=== PATIENT | male | born 1975 | race Caucasian/White ===

== ENCOUNTER → 2023-06-17 10:46 | Outpatient (REF) | payer OTHER, SELFPAY | LOC: RAD 10:46 | PROVIDERS: ATTENDING PHYSICIAN Nurse Practitioner | DX: R05.1 Acute cough (principal) | CPT/HCPCS: 71046 ==

== ENCOUNTER → 2023-06-27 12:09 | Outpatient (REF) | payer OTHER, SELFPAY | LOC: RAD 12:09 | PROVIDERS: ATTENDING PHYSICIAN Physician Assistant | DX: R07.81 Pleurodynia (principal) | CPT/HCPCS: 71101 ==

== ENCOUNTER 2023-08-05 13:49 | Inpatient (IN) | payer OTHER, SELFPAY ==
[2023-08-05 10:26] VITALS: BP 114/80
--- NOTE | 2023-08-05 10:48 | ED.GENMED ---
History of Present Illness
General
Chief Complaint: Abdominal Symptoms
Source: patient
Time Seen by Provider: 08/05/23 10:40
Travel History
Have you had any contact with someone who has COVID-19?: No
Do you have any symptoms of coronavirus? Fever > 100 degrees, chills, cough, shortness of breath, sore throat, loss of taste or smell, muscle aches, or headache?: No
History of Present Illness
History of Present Illness:
47-year-old male with past medical history of Crohn's disease, hypertension, hyperlipidemia presenting the emergency department for 3 days of of watery diarrhea going multiple times per day, when symptoms started he also had 3 episodes of nonbloody
nonbilious emesis but has not had any vomiting since Tuesday, subjective fever but has not taken his temperature, abdominal cramping, decreased p.o. intake to both solids and liquids. Patient notes that his ewhkwx-lf-emh also has similar symptoms
and they were around each other this past Tuesday. No recent travel, no recent antibiotics, states this feels different than a typical Crohn's flare. He notes that he gets Remicade infusions every 8 weeks for which she is compliant with. States
last colonoscopy was around 2 years ago. No other concerns at this time
Past History
Past History
ED Past Medical History: HTN, Hypercholesterolemia and Other (Crohn's disease, Sleep apnea); Negative Asthma or NIDDM
ED Past Surgical History: Urological (vasectomy) and Other (Liver biopsy)
Social History
Tobacco: Non-smoker
Alcohol: Occasional
Drug: None
Personal:
Living: with family
Employment: Employed
Review of Systems
Review of Systems
All Other Systems: ROS reviewed and negative except as documented in HPI and ROS
Phy Exam
Physical Exam
Physical Exam:
GENERAL: Alert , appears uncomfortable
EYE: clear conjunctiva b/l
HEAD: NCAT
ENT: o/p clr, mildly dry mucous membranes
CARDIAC: Tachycardic rate and rhythm, no murmur
LUNGS: Clear breath sounds bilaterally, no acute respiratory distress, no wheezes/rales/rhonchi
ABDOMEN: Soft, diffusely tender, no r/g, no cvat
NEUROLOGICAL: Alert and oriented
SKIN: Warm and dry, skin intact.
MUSCULOSKELETAL: No edema, well perfused.
PSYCH: Normal and appropriate interaction.
Scores
Heart Failure Risk
Heart Failure Risk Score: Not Applicable
Heart Score for Chest Pain Patients
STEMI patient?: Not applicable
Withdrawal Assessment of Alcohol
Withdrawal Assessment Completed?: Not applicable
Course
Orders/Labs/Results
Orders:
Orders
08/05/23 10:30
Electrocardiogram (*1) Urgent
Reason for Study: Tachycardia
EKG- Treatment ONCE
08/05/23 10:47
Norovirus by PCR Urgent
ANGEL LUIS Source: Feces/Stool
Specimen Description:
STOOL [C difficile Antigen & Toxins] Urgent
ANGEL LUIS Source: Feces/Stool
Specimen Description:
Stool Culture Urgent
ANGEL LUIS Source: Feces/Stool
Specimen Description:
0.9% Sodium Chloride 1000 ml [Nss] 1,000 ml IV BOLUS
Ketorolac [Toradol] 30 mg IV NOW STA
Ondansetron Injectable [Zofran] 4 mg IV NOW STA
08/05/23 11:13
Complete Blood Count/With Diff Urgent
Comprehensive Metabolic Panel Urgent
Lipase Urgent
08/05/23 11:47
Urinalysis Reflex To Culture Urgent
Date Specimen was Collected: 08/05/23
Time Specimen was Collected: 11:46
Urine Microscopic Reflex Cult Urgent
Abnormal Lab Results
08/05/23 08/05/23
11:13 11:47
WBC 13.6 H 10^3/uL
(4.8-10.8)
MCH 32.2 H pg
(27.0-31.0)
Abs Immat Gran (auto) 0.1 H 10^3/uL
(0-0.05)
Absolute Neuts (auto) 9.8 H 10^3/uL
(1.4-6.5)
Absolute Monos (auto) 2.4 H 10^3/uL
(0.1-0.6)
Immature Gran % 0.6 H %
(0-0.5)
Lymphocytes % 9.6 L %
(20.5-51.1)
Monocytes % 17.4 H %
(1.7-9.3)
Sodium 128 L mmol/L
(135-145)
Chloride 96 L mmol/L
(98-107)
Carbon Dioxide 18 L mmol/L
(22-30)
BUN 53 H mg/dl
(9-20)
Creatinine 2.3 H mg/dL
(0.7-1.3)
Glucose 118 H mg/dl
(70-99)
Urine Ketones 1+ A
(Negative)
Ur Occult Blood Reflex 3+ A
(Negative)
Urine Bilirubin 1+ A
(Negative)
Urine RBC 7-10 A /HPF
(0-2)
Urine Bacteria (Reflex) Few A
(Negative)
Urine Albumin (Reflex) 1+ A
(Neg - Trace)
08/05/23 11:13
08/05/23 11:13
Vital Signs
Initial and Last Documented VS:
Initial Vital Signs
Temp Pulse Resp BP Pulse Ox
99.1 F 124 22 114/80 98
08/05/23 10:26 08/05/23 10:26 08/05/23 10:26 08/05/23 10:26 08/05/23 10:26
Last Documented Vital Signs
Temp Pulse Resp BP Pulse Ox
99.1 F 108 19 114/80 97
08/05/23 10:26 08/05/23 11:19 08/05/23 11:19 08/05/23 10:26 08/05/23 11:19
MDM/Problems Addressed
Differential Diagnosis Includes:
Crohn's flare, infectious diarrhea, C. difficile colitis, norovirus, less concern for an acute surgical abdomen
MDM/Problems Addressed:
47-year-old male presented emergency department for evaluation of 3 days of watery diarrhea, initially had some vomiting but this seems to be mostly improved. I do expect some degree of dehydration given patient's tachycardia and lack of p.o.
intake. Will treat with Zofran, fluids and Toradol. Lab work ordered. Will attempt to obtain stool studies. Reassessment following.
*Pulse Oximetry
Patient hypoxic: no
*Critical Care Note
Total Time (30-74mins, 75-104mins- exclusive of procedures): Not Applicable
Data Reviewed
Review of Other/Old Records Reveals: Labs and Records
Patient Management
Discussion with other providers: Hospitalist
Escalation/DeEscalation of care consider admission/obs:
Patient's labs reveal uremia with a creatinine of 2.3, BUN of 53 and bicarb of 18. Patient is also mildly hyponatremic. I suspect this is all dehydration from persistent volume loss from diarrhea. Stool studies remain pending. Will admit to
hospitalist service for continued monitoring of patient's renal function. Continue IV hydration. Hospitalist accepts for continued evaluation and treat
ED Attending Note
-
Portions of this chart may have been created with voice recognition software.� Occasional wrong word or��sound alike� substitutions may have occurred due to the inherent limitations of voice recognition software.
Discharge Plan
Departure
Patient Disposition: Admit
Date of Disposition: 08/05/23
Time of Disposition: 12:07
Presentation/result/management discussed w/ accepting MD/DO: Hospitalist
Discharge Problem:
STACI (acute kidney injury), Acute dehydration, Diarrhea
Prescriptions:
No Action
atorvastatin 20 mg Tablet
20 mg PO DAILY
lisinopril 10 mg Tablet
10 mg PO DAILY
loratadine [Claritin] 10 mg Tablet
10 mg PO DAILY
infliximab [Remicade] 100 mg Recon Soln
0 mg IV Q8W
ibuprofen 200 mg Tablet
400 mg PO DAILYPRN PRN (Reason: mild pain)
acetaminophen 325 mg tablet
650 mg PO DAILYPRN PRN (Reason: mild pain)
Referrals:
Rabia Tapia CRNP [Family Provider] -
Interventions
Interventions:
*Risk Screen - Suicide Last Done: 08/05/23 11:21
*General Assessment Last Done: 08/05/23 11:20
*Neglect/Abuse Screening Last Done: 08/05/23 11:21
ED- Fall Risk Assessment Last Done: 08/05/23 11:22
*ED COVID-19 Vaccine History Last Done: 08/05/23 11:20
CP-[id number]-Wfubsbhfff Assessment Last Done: 08/05/23 11:23
Discharge Date and Time
Print Language: MALAYSIAN
[2023-08-05] MEDS: NSS 1000 IV (11:15)
[2023-08-05] MEDS: ZOFRAN 4 MG IV (11:15)
[2023-08-05] MEDS: TORADOL 30 MG IV (11:15)
[2023-08-05 11:19] VITALS: BMI 35.7
[2023-08-05 11:25] LABS: % Basophils 0.1 % (0-2); % Immature Granulocytes 0.6 % (0-0.5); % Lymphocytes 9.6 % (20.5-51.1); % Monocytes 17.4 % (1.7-9.3); % Neutrophils 72.3 % (42.2-75.2); Absolute Immature Granulocytes 0.1 10^3/uL (0-0.05); Absolute Lymphocytes 1.3 10^3/uL (1.2-3.4); Absolute Monocytes 2.4 10^3/uL (0.1-0.6); Absolute Neutrophils 9.8 10^3/uL (1.4-6.5); Hematocrit 46.4 % (39.0-52.0); Hemoglobin 16.7 g/dL (13.0-18.0); Mean Corpuscular Hgb 32.2 pg (27.0-31.0); Mean Corpuscular Volume 89.4 fL (80.0-94.0); Mean Platelet Volume 9.3 fL (7.4-10.4); Nucleated Red Blood Cells % 0 % (-); Platelet Count 198 10^3/uL (130-400); Red Blood Cell Count 5.19 10^6/uL (4.70-6.10); Red Cell Dist. Width 12.1 % (11.5-14.5); White Blood Cell Count 13.6 10^3/uL (4.8-10.8)
[2023-08-05 11:42] LABS: ALT (SGPT) 46 U/L (0-50); AST (SGOT) 47 U/L (17-59); Albumin 4.5 g/dl (3.5-5.0); Alkaline Phosphatase 104 U/L (38-126); Blood Urea Nitrogen 53 mg/dl (9-20); Calcium 9.1 mg/dl (8.4-10.2); Carbon Dioxide 18 mmol/L (22-30); Chloride 96 mmol/L (98-107); Estimated Creatinine Clearance 51 ml/min; Glucose 118 mg/dl (70-99); Lipase 154 U/L (23-300); Potassium 3.8 mmol/L (3.5-5.1); Sodium 128 mmol/L (135-145); Total Bilirubin 0.8 mg/dl (0.2-1.3); Total Protein 8.1 g/dl (6.3-8.2); eGFR 34.81
[2023-08-05 11:57] LABS: Urine Albumin 1+ (Neg - Trace); Urine Bilirubin 1+ (Negative); Urine Character Clear (Clear); Urine Color Yellow; Urine Glucose Negative (Negative); Urine Ketone 1+ (Negative); Urine Leukocyte Negative (Negative); Urine Nitrite Negative (Negative); Urine Occult Blood 3+ (Negative); Urine Specific Gravity 1.025 (<1.030); Urine Urobilinogen Negative (Neg - 1+)
[2023-08-05 12:07] LABS: Urine Mucus Few
[2023-08-05 12:10] LABS: Urine Granular Cast >15 /LPF (0)
[2023-08-05 12:12] LABS: Urine Amorphous Seen
[2023-08-05 12:15] LABS: Urine Bacteria Few (Negative)
--- NOTE | 2023-08-05 13:37 | HPS.HSE ---
Family Physician
-
Family Physician: TYE Payne
Chief Complaint
-
Diarrhea nausea and vomiting
History of Present Illness
Patient is a 47-year-old male with past medical history of essential hypertension, hyperlipidemia, Crohn's disease on Remicade every 2 months, obesity came to ER for having new onset of diarrhea nausea and vomiting in 3 days. Patient getting
Remicade therapy with primary GI at [facility] and at baseline have 1-2 soft bowel movements. Denies of having any history of complicating Crohn's disease symptoms. 3 days patient started with acute onset of nausea and vomiting followed by
significant diarrhea. Patient had 6 bowel movement last night and having 1 bowel movement roughly every hour according to patient today. Having diffuse abdominal discomfort with mainly located in right lower quadrant. Subjective fever and chills
as well. Denies of having any blood in stool/melena. Patient sister in law had similar symptoms on Tuesday and potential exposure point.
Denies of having any planes of chest pain/shortness of breath/cough/palpitation/dysuria.
Medical History
Past Medical History
Past Medical History: Reports Other
Additional Past Medical History:
essential hypertension, hyperlipidemia, Crohn's disease on Remicade every 2 months, obesity
Past Surgical History: Reports Other
Social History
Tobacco: Non-smoker
Alcohol: Occasional
Drug: None
Living: With Family
Family History
Family History: Not pertinent
Allergies / Home Medications
Allergies reflects when Allergies were last updated in fruux.
Home Medications with original date entered in fruux
Allergy/Medication List:
Allergies
Allergy/AdvReac Type Severity Reaction Status Date / Time
No Known Allergies Allergy Verified 08/05/23 10:26
Home Medications
atorvastatin 20 mg tablet 20 mg PO DAILY High cholesterol 11/19/21
lisinopril 10 mg tablet 10 mg PO DAILY Blood pressure 11/19/21
loratadine 10 mg tablet (Claritin) 10 mg PO DAILY Allergies 11/20/21
acetaminophen 325 mg tablet 650 mg PO DAILYPRN PRN mild pain 08/05/23
ibuprofen 200 mg tablet 400 mg PO DAILYPRN PRN mild pain 08/05/23
infliximab 100 mg intravenous solution (Remicade) 0 mg IV Q8W 08/05/23
Review of Systems
-
A 12 point ROS was completed and negative except as noted: Yes
Physical Exam
Vital Signs
Vital Signs
Temp Pulse Resp BP Pulse Ox
99.1 F 108 19 114/80 97
08/05/23 10:26 08/05/23 11:19 08/05/23 11:19 08/05/23 10:26 08/05/23 11:19
Physical Exam
General: Comfortable, Conversant and Obese
HEENT: No Moist mucous membranes or Oxygen
Respiratory: Clear
Cardiac: S1/S2 and Regular Rhythm; No Murmur
GI: Soft, Normal Bowel Sounds and Tender (maximal at RLQ)
Musculoskeletal: No Clubbing, No Cyanosis and No Edema
Skin: Warm and Dry
Neuro: Awake, Alert, Oriented and Nonfocal/grossly intact
Psych: Calm
Laboratory Results
-
08/05/23 11:13
08/05/23 11:13
Laboratory Results
Total Bilirubin 0.8 mg/dl (0.2-1.3) 08/05/23 11:13
AST 47 U/L (17-59) 08/05/23 11:13
ALT 46 U/L (0-50) 08/05/23 11:13
Alkaline Phosphatase 104 U/L (38-126) 08/05/23 11:13
Lipase 154 U/L (23-300) 08/05/23 11:13
Data Reviewed
-
Lab Data: Labs Reviewed by me
Impression/Plan
-
1. Acute diarrhea
Sepsis -tachycardia/leukocytosis
Rule out infectious etiology
-Patient have history of Crohn's disease although at baseline patient does not have any diarrhea
-Symptoms acute onset with nausea and vomiting preceding diarrhea onset
-No recent antibiotic exposure, patient whllxj-nt-ghv had similar symptoms on Tuesday
-Check stool for C. difficile/stool culture norovirus
-Maintain on empiric ciprofloxacin and Flagyl
-GI evaluation requested as well.
2. Acute kidney injury
-No history of chronic kidney disease
-Creatinine 2.3 unlikely due to volume depletion
-Maintain on D5 LR, follow renal function
3. Acute hyponatremia
-Suspecting hypovolemic hyponatremia from diarrhea loss
-Will do further testing if not improved with IV fluid
4. Anion gap metabolic acidosis
-Check lactic acid level
-Suspecting some of acidosis being non-anion gap due to diarrhea loss
-oral bicrab ordered
5. Essential HTN
-Hold lisinopril due to STACI
-As needed hydralazine for SBP greater than 160
6. Hyperlipidemia
-Maintained on atorvastatin
DVT PPX - heparin subq- high risk with CD
Full code
Total time spent : 78 mins
I personally saw and examined the patient.
I have reviewed all diagnostic interpretations and treatment plans as written.
Time includes patient management by me, time spent at the patients bedside, time to review lab and imaging results, discussing patient care, documentation in the medical record, and time spent with the family or caregiver and discussing care plan
with RN/Consultants.
[2023-08-05] MEDS: CIPRO 400 MG 200 IV (14:14)
--- NOTE | 2023-08-05 14:25 | CON.GI ---
Addendum entered and electronically signed by Rafael Horn MD 08/05/23 16:02:
Patient seen and examined, agree with nurse practitioner note. Patient with history of Crohn's disease for many years status post multiple Biologics, though has been doing very well on Remicade every 8 weeks, seeing gastroenterology at [facility]. Acutely he had onset of nausea, vomiting and nonbloody diarrhea with crampy abdominal pain. He feels very dehydrated and weak. He is never had symptoms like this before. He does state that his cicrki-lu-pkg also had recent
symptoms. He denies any other travel or antibiotics. He has not had any issues on Remicade at the end of his infusion cycle and is overall been doing well, and he feels that this is different. On exam his mucous membranes are dry, though
abdominal exam is benign. Most likely etiology is acute infectious gastroenteritis, possible norovirus given his symptoms, along with significant dehydration and electrolyte abnormality. At this point would continue aggressive IV fluids and
correction of his dehydration and electrolyte abnormality. Will await stool studies, though can continue antibiotics for now and supportive care. This is less likely to be related to his Crohn's disease, though if not improving with hydration and
all the above is negative may need to investigate further.
Addendum entered and electronically signed by TYE Schaefer 08/05/23 15:54:
If not improving consider CT not completed in ER
Original Note:
Consultation
-
Date/Time Consultation Requested: 08/05/23 1345
Date/Time Consultation Performed: 08/05/23 1425
Requesting Provider: Gil Daugherty MD
Performing Provider: TYE Dwyer, Mehdi Horn MD
Reason for Consultation: diarrhea hx crohns
Medical History
Chief Complaint / HPI
Chief Complaint: diarrhea
History of Present Illness:
Pt is a 47yo presents with hx HTN, hypercholesterolemia obesity, melanoma leg 2022 with surgical resection with Dr. Doyle and crohn's disease. He presents to ER today with sudden onset since 4/3 of nausea and vomiting(large volume), abdominal pain
and diarrhea. Abdominal pain diffuse lower abdominal . Diarrhea has been very frequent every hour now small volumes with baseline 1-2 stools per day. In reviewing with patient he has had crohn's disease since age 20. He has followed with
Lilibeth and Dr. Landa at [facility]. He is unsure of location of disease but recall prior treatment with 6 MP, Asacol, Steroid in distant past, Entyvio, Stelara, Humira and last 2 years Remicade. He recall medication changes for insurance issues and
uncontrolled disease but overall no prior surgeries or hospital admission with good quality of live with family. He did recall prior admission with food poisoning in 2001. He denies visual problems, joint pain and rash with disease. No recent
travel, abx, but admits to some family contact with similar symptoms.
Pt currently admits to dry mouth. He denies dysphagia, GERD, or bleeding. Last EGD 2 years ago recalls as normal and colonoscopy with start of remicade 2 years ago with mild disease with Dr. Mcelroy. On admission noted with WBC 13.6, Na
128, creat 2.8, Co2 18, CRP 166.3.
Past Medical History
Past Medical History: Cancer (melanoma of calf), HTN, Hypercholesterolemia and Other (crohn's disease on Remicade , sleep apnea, obesity )
Past Surgical History: Other (deviated septum surgery, liver biopsy, wisdom teeth extraction)
Social History
Tobacco: Non-Smoker
Alcohol: None
Drug: None
Personal:
Living: With Family
Employment: Employed
Family History
Family History: Other (no family hx colon CA or polyps, no family hx crohns or UC)
Allergies / Home Medications
Allergy/AdvReac Type Severity Reaction Status Date / Time
No Known Allergies Allergy Verified 08/05/23 10:26
�Medication �Instructions �Recorded
atorvastatin 20 mg tablet 20 mg PO DAILY High cholesterol 11/19/21
lisinopril 10 mg tablet 10 mg PO DAILY Blood pressure 11/19/21
loratadine 10 mg tablet (Claritin) 10 mg PO DAILY Allergies 11/20/21
acetaminophen 325 mg tablet 650 mg PO DAILYPRN PRN mild pain 08/05/23
ibuprofen 200 mg tablet 400 mg PO DAILYPRN PRN mild pain 08/05/23
infliximab 100 mg intravenous 0 mg IV Q8W 08/05/23
solution (Remicade)
Review of Systems
-
History Source: Patient
Constitutional: Reports Weight Loss (12 lbs in 2 days )
EENT: Reports No Symptoms
Respiratory: Reports No Symptoms
Cardiac: Reports No Symptoms
Abdomen/GI: Reports Nausea, Vomiting and Diarrhea
Musculoskeletal: Reports No Symptoms
Skin: Reports No Symptoms
Neurological: Reports Weakness
Endocrine: Reports No Symptoms
Hematologic/Lymphatic: Reports No Symptoms
Vital Signs
Temp Pulse Resp BP Pulse Ox
99.1 F 95 21 114/80 96
08/05/23 10:26 08/05/23 14:00 08/05/23 14:00 08/05/23 10:26 08/05/23 13:15
Physical Exam
Exam
General: Other (flush )
HEENT: Normocephalic and Anicteric
Respiratory: Clear
Cardiac: Regular Rhythm
GI: Soft, Non Distended and Tender (lower abdomen )
Musculoskeletal: No Clubbing and No Cyanosis
Skin: Warm and Dry
Neuro: Awake, Alert and AO x 3
Psych: Calm
Results
WBC 13.6 10^3/uL (4.8-10.8) H 08/05/23 11:13
Hgb 16.7 g/dL (13.0-18.0) 08/05/23 11:13
Hct 46.4 % (39.0-52.0) 08/05/23 11:13
MCV 89.4 fL (80.0-94.0) 08/05/23 11:13
Plt Count 198 10^3/uL (130-400) 08/05/23 11:13
Absolute Neuts (auto) 9.8 10^3/uL (1.4-6.5) H 08/05/23 11:13
Sodium 128 mmol/L (135-145) L 08/05/23 11:13
Potassium 3.8 mmol/L (3.5-5.1) 08/05/23 11:13
Chloride 96 mmol/L (98-107) L 08/05/23 11:13
Carbon Dioxide 18 mmol/L (22-30) L 08/05/23 11:13
BUN 53 mg/dl (9-20) H 08/05/23 11:13
Creatinine 2.3 mg/dL (0.7-1.3) H 08/05/23 11:13
Calcium 9.1 mg/dl (8.4-10.2) 08/05/23 11:13
Total Bilirubin 0.8 mg/dl (0.2-1.3) 08/05/23 11:13
AST 47 U/L (17-59) 08/05/23 11:13
ALT 46 U/L (0-50) 08/05/23 11:13
Alkaline Phosphatase 104 U/L (38-126) 08/05/23 11:13
Lipase 154 U/L (23-300) 08/05/23 11:13
Diagnostic Image Results:
CT a/p 2019- mild pancolitis
Prior GI Procedures:
EGD: last stable [address] Mcelroy per pt recall
Colonoscopy: last 2 years ago mild disease with start of Remicade per pt recall Dr. Mcelroy
Assessment / Plan
-
Pt is a 47yo presents with hx HTN, hypercholesterolemia obesity, melanoma leg 2022 with surgical resection with Dr. Doyle and longstanding crohn's disease with multiple prior treatment, distal hx steroids, no surgeries or prior crohns
hospitalization with currently controlled disease on Remicade last 2 years. He follow with Dr. Mcelroy and Dr. Harrell at [facility]. He presents with sudden onset of nausea, vomiting large volume with abdominal pain and frequent diarrhea with baseline
1-2 stools per day. + sick contact in family. On admission Last colonoscopy with start of remicade 2 years ago with mild disease with Dr. Mcelroy. On admission noted with WBC 13.6, Na 128, creat 2.8, Co2 18, CRP 166.3.
-nausea/vomiting/diarrhea
-hx crohn's disease on Remicade
-STACI on admission
-hyponatremia
-metabolic acidosis
-leukocytosis
-elevated CRP
other medical problems:
-HTN
-hypercholesterolemia
-obesity
-melanoma leg with resection 2022
PLAN:
etiology of symptoms with concern for infectious process -- norovirus with vomiting, c-diff, etc
check stool studies to rule out infection
CRP elevated at 166.3
IVF repletion with STACI per hospitalist-- TT Dr. Daugherty to add in ER
abx added in ER
ok for clear diet as tolerated
last remicade infusion 07/14
OP follow with Dr. Mcelroy and Dr. Harrell
-
-
Thank you for consultation and allowing me to participate in the patient's care. Please call the environmental services worker GI physician during the after hours with any questions or concerns.
[2023-08-05 15:02] LABS: Erythrocyte Sed Rate 21 mm/hour (0-20)
[2023-08-05 15:43] VITALS: BP 117/83
--- NOTE | 2023-08-05 15:55 | PTCARENOTE ---
attempting a second IV line for additional IV fluids and meds. Second nurse called in for IV line
--- NOTE | 2023-08-05 16:02 | W.PN.UPDATE ---
Update Note
Progress Note Update
For billing purposes
[2023-08-05] MEDS: D5LR 1000 IV (16:13)
[2023-08-05 16:15] VITALS: BP 120/80
[2023-08-05] MEDS: FLAGYL 500 MG 100 IV ×2 (16:45→21:14)
[2023-08-05] MEDS: TYLENOL 650 MG PO (17:05)
--- NOTE | 2023-08-05 17:29 | PTCARENOTE ---
Received patient from ED into room 2126. Patient AAOx3, OOB as malu, VSS. D5 LR infusing into R FA IV @ 100 ml/hr, patient receiving IV flagyl through L FA IV; IV cipro infused in ED. Patient denies any nausea at this time, states that abdominal pain
is mainly focused in RLQ but denies need for pain medication at this time; PRN tylenol given for DANG. Patient on a full liquid diet, dinner ordered. Patient oriented to room and call leahy, states no concerns at this time.
[2023-08-05] MEDS: HEPARIN 5000 UNITS SC (21:13)
[2023-08-05] MEDS: SODIUM BICARBONATE 1300 MG PO (21:13)
[2023-08-05 23:36] VITALS: BP 123/84
[2023-08-06] MEDS: CIPRO 400 MG 200 IV ×2 (03:09→14:45)
[2023-08-06] MEDS: D5LR 1000 IV ×3 (03:14→22:46)
[2023-08-06] MEDS: FLAGYL 500 MG 100 IV ×3 (05:37→22:41)
[2023-08-06 07:10] VITALS: BP 113/76
--- NOTE | 2023-08-06 08:38 | W.PN.GI.CBS2 ---
Today's Communication / Plan
-
See assessment and plan for details.
Assessment / Plan
-
1. Vomiting/diarrhea: Likely secondary to infectious gastroenteritis with resultant dehydration and electrolyte abnormality, now doing much better after IV fluids. Norovirus was negative, other stool studies pending as well as this morning's labs,
though is feeling much better. At this point would continue IV fluids and supportive care, await morning labs. Will continue full liquid diet for now. Pending stool studies would continue antibiotics though bacterial infection seems less likely.
Assuming continues to improve likely able to discharge tomorrow.
2. Crohn's disease: Unclear extent, status post multiple Biologics in the past, has done well over the last 2 years on Remicade every 8 weeks, doubt that this is related to his current situation. He will continue to follow with [facility]
[place] on discharge.
Subjective
Subjective
Date of Service: August 06, 2023
Patient is a much better overall, no vomiting, last bowel movement was yesterday, no fevers or chills overnight, tolerating full liquids.
Objective
Data Reviewed
Laboratory Data:
Laboratory Results
Total Bilirubin 0.8 mg/dl (0.2-1.3) 08/05/23 11:13
AST 47 U/L (17-59) 08/05/23 11:13
ALT 46 U/L (0-50) 08/05/23 11:13
Alkaline Phosphatase 104 U/L (38-126) 08/05/23 11:13
Lipase 154 U/L (23-300) 08/05/23 11:13
Vital Signs and I&O:
Vital Signs
Temp Pulse Resp BP Pulse Ox
98.3 F 83 16 113/76 98
08/06/23 07:10 08/06/23 07:10 08/06/23 07:10 08/06/23 07:10 08/06/23 07:10
I&O
08/05/23 08/06/2324
06:59 06:59 06:59
Intake Total 1979
Balance 1979
Physical Exam
Physical Exam
General: NAD
Abdomen: normal bowel sounds, soft, no tenderness, no masses or bruits, no ascites
[2023-08-06] MEDS: SODIUM BICARBONATE 1300 MG PO ×2 (08:56→19:06)
[2023-08-06] MEDS: HEPARIN 5000 UNITS SC ×2 (08:56→19:06)
[2023-08-06] MEDS: CLARITIN 10 MG PO (08:56)
[2023-08-06] MEDS: LIPITOR 20 MG PO (08:56)
[2023-08-06 09:40] LABS: Blood Urea Nitrogen 41 mg/dl (9-20); Calcium 8.3 mg/dl (8.4-10.2); Carbon Dioxide 21 mmol/L (22-30); Chloride 102 mmol/L (98-107); Estimated Creatinine Clearance 84 ml/min; Glucose 104 mg/dl (70-99); Potassium 3.3 mmol/L (3.5-5.1); Sodium 131 mmol/L (135-145); eGFR > 60.00
[2023-08-06 09:42] LABS: Hematocrit 36.8 % (39.0-52.0); Hemoglobin 13.6 g/dL (13.0-18.0); Mean Corpuscular Hgb 32.5 pg (27.0-31.0); Mean Corpuscular Volume 87.8 fL (80.0-94.0); Mean Platelet Volume 10.2 fL (7.4-10.4); Platelet Count 158 10^3/uL (130-400); Red Blood Cell Count 4.19 10^6/uL (4.70-6.10); Red Cell Dist. Width 12.2 % (11.5-14.5); White Blood Cell Count 5.4 10^3/uL (4.8-10.8)
[2023-08-06] MEDS: KCL 40 MEQ PO (11:14)
--- NOTE | 2023-08-06 12:06 | W.PN.HOSP.TC ---
Today's Communication/Plan
-
continue IVF for now
f/u stool studies
continue abx
Assessment / Plan
Assessment / Plan
1. Acute diarrhea
Sepsis -tachycardia/leukocytosis
Rule out infectious etiology
-Patient have history of Crohn's disease although at baseline patient does not have any diarrhea
-Symptoms acute onset with nausea and vomiting preceding diarrhea onset
-No recent antibiotic exposure, patient [id number] had similar symptoms on Tuesday
-C. difficile/norovirus negative. Negative stool WBC. Final stool culture report and ova parasite study report pending
-Maintain on empiric ciprofloxacin and Flagyl
-GI evaluation requested as well.
2. Acute kidney injury - Improving
-No history of chronic kidney disease
-Creatinine 2.3 unlikely due to volume depletion
-Maintain on D5 LR, follow renal function
3. Acute hyponatremia - Improving
-Suspecting hypovolemic hyponatremia from diarrhea loss
-Will do further testing if not improved with IV fluid
4. Anion gap metabolic acidosis - Improving
-Suspecting some of acidosis being non-anion gap due to diarrhea loss
-oral bicrab ordered
5. Essential HTN
-Hold lisinopril due to STACI
-As needed hydralazine for SBP greater than 160
6. Hyperlipidemia
-Maintained on atorvastatin
DVT PPX - heparin subq- high risk with CD
Full code
Anticipated Discharge: Within 24 hours
Subjective/Interval History
-
Date of Service: August 06, 2023
Patient clinically feeling better
Denies of any nausea or vomiting
Last bowel movement last night
Objective Data
-
Labs:
Laboratory Results
08/06/23
07:39
WBC 5.4
Hgb 13.6
Hct 36.8 L
Plt Count 158 D
Sodium 131 L
Potassium 3.3 L
Chloride 102
Carbon Dioxide 21 L
BUN 41 H
Creatinine 1.4 H
Glucose 104 H
Calcium 8.3 L
Vital Signs:
Vital Signs
Temp Pulse Resp BP Pulse Ox
98.3 F 83 16 113/76 98
08/06/23 07:10 08/06/23 07:10 08/06/23 07:10 08/06/23 07:10 08/06/23 08:00
I&O
08/05/23 08/06/23 08/07/23
06:59 06:59 06:59
Intake Total 1979
Balance 1979
Review of Systems
-
Respiratory: Reports No Symptoms
Cardiac: Reports No Symptoms
Abdomen/GI: Reports No Symptoms
Physical Exam
-
General: Comfortable
HEENT: Negative Oxygen
Respiratory: Clear to Auscultation
Cardiac: Regular Rhythm and S1/S2; Negative Murmur or Rub
GI: Soft and Nontender
Musculoskeletal: No Edema
Neuro: Awake, Alert, Oriented, No Motor Deficits and Nonfocal/Grossly Intact
Psych: Calm
[2023-08-06] MEDS: TYLENOL 650 MG PO ×2 (13:41→19:06)
[2023-08-06 15:05] VITALS: BP 117/77
--- NOTE | 2023-08-06 15:16 | CM ---
Met with patient in room. He reports he is independent in home and community. He lives with .
He does not have or use any DME. No history of SNf or home care.
PCP Lakeshia Tapia
RX: [facility].
Plan: home no needs
[2023-08-06 23:05] VITALS: BP 118/76
[2023-08-07] MEDS: CIPRO 400 MG 200 IV (02:18)
[2023-08-07] MEDS: FLAGYL 500 MG 100 IV (05:59)
[2023-08-07 07:05] VITALS: BP 113/74
[2023-08-07] MEDS: LIPITOR 20 MG PO (08:09)
[2023-08-07] MEDS: CLARITIN 10 MG PO (08:09)
[2023-08-07] MEDS: SODIUM BICARBONATE PO (08:09)
[2023-08-07] MEDS: HEPARIN SC (08:09)
--- NOTE | 2023-08-07 08:12 | W.PN.GI.CBS2 ---
Today's Communication / Plan
-
See assessment and plan for details.
Assessment / Plan
-
1. Vomiting/diarrhea: Likely secondary to infectious gastroenteritis with resultant dehydration and electrolyte abnormality, now doing much better after IV fluids. Norovirus was negative, other stool studies pending as well as this morning's labs,
though is feeling much better. As long as morning labs are okay is okay to DC from GI standpoint.
2. Crohn's disease: Unclear extent, status post multiple Biologics in the past, has done well over the last 2 years on Remicade every 8 weeks, doubt that this is related to his current situation. He will continue to follow with [facility]
[place] on discharge.
Subjective
Subjective
Date of Service: August 07, 2023
Patient feeling much better overall, no vomiting, tolerated without difficulty, no diarrhea. No fevers or chills.
Objective
Data Reviewed
Laboratory Data:
Laboratory Results
Total Bilirubin 0.8 mg/dl (0.2-1.3) 08/05/23 11:13
AST 47 U/L (17-59) 08/05/23 11:13
ALT 46 U/L (0-50) 08/05/23 11:13
Alkaline Phosphatase 104 U/L (38-126) 08/05/23 11:13
Lipase 154 U/L (23-300) 08/05/23 11:13
Vital Signs and I&O:
Vital Signs
Temp Pulse Resp BP Pulse Ox
97.6 F 75 16 113/74 98
08/07/23 07:05 08/07/23 07:05 08/07/23 07:05 08/07/23 07:05 08/07/23 07:05
I&O
08/06/23 08/07/23 08/08/23
06:59 06:59 06:59
Intake Total 1979 3820 / 3820
Balance 1979 3820 / 3820
Physical Exam
Physical Exam
General: NAD
Abdomen: normal bowel sounds, soft, no tenderness, no masses or bruits, no ascites
[2023-08-07 08:52] LABS: Hematocrit 38.9 % (39.0-52.0); Hemoglobin 13.3 g/dL (13.0-18.0); Mean Corp Hgb Conc. 34.2 g/dL (33.0-37.0); Mean Corpuscular Hgb 31.6 pg (27.0-31.0); Mean Corpuscular Volume 92.4 fL (80.0-94.0); Platelet Count 159 10^3/uL (130-400); Red Blood Cell Count 4.21 10^6/uL (4.70-6.10); Red Cell Dist. Width 12.1 % (11.5-14.5); White Blood Cell Count 4.3 10^3/uL (4.8-10.8)
[2023-08-07 09:23] LABS: Blood Urea Nitrogen 19 mg/dl (9-20); Calcium 8.9 mg/dl (8.4-10.2); Carbon Dioxide 30 mmol/L (22-30); Chloride 101 mmol/L (98-107); Estimated Creatinine Clearance 117 ml/min; Glucose 103 mg/dl (70-99); Sodium 137 mmol/L (135-145); eGFR > 60.00
--- NOTE | 2023-08-07 12:45 | W.PN.HOSP.TC ---
Today's Communication/Plan
-
d/c home
Assessment / Plan
Assessment / Plan
1. Acute diarrhea - presumed infectious - resolved
Sepsis -tachycardia/leukocytosis
Rule out infectious etiology
-Patient have history of Crohn's disease although at baseline patient does not have any diarrhea
-Symptoms acute onset with nausea and vomiting preceding diarrhea onset
-No recent antibiotic exposure, patient [id number] had similar symptoms on Tuesday
-C. difficile/norovirus/Stool bacterial culture/Ova parasite Negative.
-Maintain on empiric ciprofloxacin and Flagyl
-GI evaluation requested as well.
2. Acute kidney injury -Resolved
-No history of chronic kidney disease
-Creatinine 2.3 unlikely due to volume depletion
-Maintain on D5 LR, follow renal function
3. Acute hyponatremia - Resolved
-Suspecting hypovolemic hyponatremia from diarrhea loss
-Will do further testing if not improved with IV fluid
4. Anion gap metabolic acidosis - Resolved
-Suspecting some of acidosis being non-anion gap due to diarrhea loss
-oral bicrab ordered
5. Essential HTN
-resume back lisinopril at discharge
-As needed hydralazine for SBP greater than 160
6. Hyperlipidemia
-Maintained on atorvastatin
DVT PPX - heparin subq- high risk with CD
Full code
More than 30 minutes spent in discharge including
Final examination of the patient
Summarizing hospital stay
Instructions for continuing care to all relevant caregivers
Preparation of discharge records, prescriptions, and referral forms
Total time spent (in minutes): 40 mins
Anticipated Discharge: Today
Subjective/Interval History
-
Date of Service: August 07, 2023
no complains overnight
diarrhea resolved
Objective Data
-
Labs:
Laboratory Results
08/07/23
08:03
WBC 4.3 L
Hgb 13.3
Hct 38.9 L
Plt Count 159
Sodium 137
Potassium 4.0
Chloride 101
Carbon Dioxide 30
BUN 19
Creatinine 1.0
Glucose 103 H
Calcium 8.9
Vital Signs:
Vital Signs
Temp Pulse Resp BP Pulse Ox
97.6 F 75 16 113/74 98
08/07/23 07:05 08/07/23 07:05 08/07/23 07:05 08/07/23 07:05 08/07/23 07:05
I&O
08/06/23 08/07/23 08/08/23
06:59 06:59 06:59
Intake Total 1979 3820 / 3820
Balance 1979 3820 / 3820
Review of Systems
-
Respiratory: Reports No Symptoms
Cardiac: Reports No Symptoms
Abdomen/GI: Reports No Symptoms
Physical Exam
-
General: Comfortable
HEENT: Negative Oxygen
Respiratory: Clear to Auscultation
Cardiac: Regular Rhythm and S1/S2; Negative Murmur or Rub
GI: Soft and Nontender
Musculoskeletal: No Edema
Neuro: Awake, Alert, Oriented, No Motor Deficits and Nonfocal/Grossly Intact
Psych: Calm
--- NOTE | 2023-08-07 17:13 | W.DCSUMMARY ---
Discharge Summary
Discharge Data
Date of Admission: 08/05/23
Date of Discharge: 08/07/23
-
Pending Results: No
Hospital Course
Discharging Physician : Dr Bret Daugherty
Disposition : To home
Primary care physician : Dr Rabia Taipa
Principal Discharge diagnosis :
Acute diarrhea presumed infectious
Sepsis
Acute kidney injury
Acute hypovolemic hyponatremia
Anion gap metabolic acidosis
Chronic Discharge diagnosis :
Essential hypertension
Hyperlipidemia
History of Crohn's disease on Remicade therapy every 2 months
Hospital Course :
Patient is a 47-year-old male with above-mentioned past medical history came to ER with new onset of diarrhea nausea and vomiting within 3 days. Patient had significant stool output with having more than 10 bowel movements a day. Denied of having
any excessive abdominal pain or fever episode. In ER laboratory evaluation showing significant metabolic derangements associated with diarrhea of renal failure/hyponatremia/hypokalemia. Patient have history of Crohn's disease and on Remicade
therapy does not have any problem or flareups. Patient was started on empiric antibiotic therapy for concern of possible infectious diarrhea and stool test were sent. Patient was started on IV fluid for volume repletion. Patient stool test of
norovirus/C. difficile/stool culture/ova/parasite was negative. Patient had rapid improvement in symptoms within 48 hours. Patient renal failure resolved and sodium normalized as well. At this point patient was discharged on finishing course of
oral ciprofloxacin and Flagyl. Patient to follow-up with primary carriage rider at [facility] in 4 to 6 weeks.
Important imaging findings :
None
Procedure findings :
None
Discharge Plan
-
Patient Disposition: Home (Routine Discharge)
Discharge Diagnosis/Procedures: Presumed infectious diarrhea,
Condition: Fair
Diet: Regular
Activity: As tolerated
Driving Restrictions: As prior to admission
Bathing Restrictions: OK to Shower
Referrals:
Rabia Tapia CRNP [Family Provider] - in one week
Prescriptions:
New
ciprofloxacin HCl 500 mg tablet
500 mg PO BID Qty: 10 0RF
metronidazole 500 mg tablet
500 mg PO Q8H 5 Days Qty: 15 0RF
Visbiome 112.5 billion cell capsule
2 cap PO DAILY Qty: 14 0RF
Continued
atorvastatin 20 mg Tablet
20 mg PO DAILY
lisinopril 10 mg Tablet
10 mg PO DAILY
loratadine [Claritin] 10 mg Tablet
10 mg PO DAILY
infliximab [Remicade] 100 mg Recon Soln
0 mg IV Q8W
ibuprofen 200 mg Tablet
400 mg PO DAILYPRN PRN (Reason: mild pain)
acetaminophen 325 mg tablet
650 mg PO DAILYPRN PRN (Reason: mild pain)
Discharge Orders:
Discharge Patient (As Directed); Ordered 08/07/23
Ordered By: Bret Daugherty
Discharge Date and Time
Discharge Date/Time: 08/07/23 12:52
Print Language: WOLOF
== END 2023-08-07 12:52 | disposition home or self-care (01) | DRG 872 ==
LOC: 2 NORTH 13:49
PROVIDERS: Physician Assistant Medical; ADMITTING PHYSICIAN Hospitalist; CONSULT PHYSICIAN Internal Medicine Gastroenterology; EMERGENCY PHYSICIAN Student in an Organized Health Care Education/Training Program; FAMILY PHYSICIAN Nurse Practitioner
DX: A41.9 Sepsis, unspecified organism (principal); A09 Infectious gastroenteritis and colitis, unspecified; N17.9 Acute kidney failure, unspecified; E87.1 Hypo-osmolality and hyponatremia; E87.20 Acidosis, unspecified; K50.90 Crohn's disease, unspecified, without complications; I10 Essential (primary) hypertension; E78.00 Pure hypercholesterolemia, unspecified; E66.9 Obesity, unspecified; Z79.620 Long term (current) use of immunosuppressive biologic; E87.6 Hypokalemia; Z68.35 Body mass index [BMI] 35.0-35.9, adult
CPT/HCPCS: 80048; 80053; 81003; 81015; 83690; 85025; 85027; 85652; 86140; 87045; 87046; 87324; 87328; 87329; 87427; 87449; 87798; 89055; 93005; 96361; 96374; 96375; 99284

== ENCOUNTER 2024-04-29 09:29 | Emergency (ER) | payer OTHER, SELFPAY ==
[2024-04-29 09:46] VITALS: BP 181/119
[2024-04-29 10:38] LABS: COVID-19 Antigen Negative (Negative)
[2024-04-29 11:03] VITALS: BMI 34.5
[2024-04-29 11:10] VITALS: BP 137/93
[2024-04-29 11:12] VITALS: BP 137/93
--- NOTE | 2024-04-29 11:17 | ED.GENMED ---
History of Present Illness
General
Chief Complaint: Throat Problem
Source: patient
Exam Limitations: none
Time Seen by Provider: 04/29/24 10:30
Nursing documentation reviewed up to this point in time: agreed with
History of Present Illness
History of Present Illness:
48-year-old male presenting to the emergency department today with concerns of sore throat worsening over the past few days. Trouble swallowing as well but has been able to tolerate fluids. Denies significant shortness of breath.
Past History
Past History
ED Past Medical History: HTN, Hypercholesterolemia and Other (Crohn's disease, Sleep apnea); Negative Asthma or NIDDM
ED Past Surgical History: Urological (vasectomy) and Other (Liver biopsy)
Social History
Tobacco: Non-smoker
Alcohol: Occasional
Drug: None
Personal:
Living: with family
Employment: Employed
Review of Systems
Review of Systems
Allergies reviewed?: Yes
All Other Systems: ROS reviewed and negative except as documented in HPI and ROS
Phy Exam
Physical Exam
Physical Exam:
GENERAL: Alert , in no apparent distress
EYE: pupils equal and reactive
NECK: Supple, no significant adenopathy.
ENT: Significantly swollen exudative tonsils bilaterally there is grossly patent airway roughly half a centimeter of space between the 2 tonsils uvula midline. o/p clr, mmm.
CARDIAC: Regular rate and rhythm .
LUNGS: Clear breath sounds bilaterally, no acute respiratory distress, no wheezes/rales/rhonchi
ABDOMEN: Soft, without focal tenderness, no r/g, no cvat
NEUROLOGICAL: Alert and oriented, no focal neuro deficits
SKIN: Warm and dry, skin intact.
MUSCULOSKELETAL: No edema, well perfused.
PSYCH: Normal and appropriate interaction.
Course
Orders/Labs/Results
Orders:
Orders
04/29/24 09:51
COVID-19 Antigen Urgent
Source: Nasal Swab
Influenza A+B Rapid Molecular Urgent
ANGEL LUIS Source: Nasal Swab
Specimen Description:
Date Specimen was Collected: 04/29/24
Time Specimen was Collected: 09:50
Rapid Strep Group A Urgent
ANGEL LUIS Source: Throat/Pharynx
Specimen Description:
Date Specimen was Collected: 04/29/24
Time Specimen was Collected: 09:50
04/29/24 10:45
Dexamethasone Sod Phosphate [Decadron] 10 mg IV NOW STA
Ketorolac [Toradol] 30 mg IV NOW STA
04/29/24 11:16
EKG [Electrocardiogram (*1)] Urgent
Reason for Study: Bradycardia / Tachycardia
EKG- Treatment ONCE
0.9% Sodium Chloride 1000 ml [Nss] 1,000 ml IV BOLUS
04/29/24 11:23
Ampicillin/Sulbactam 3 G [Unasyn] 3 gm 0.9% Sodium Chloride 100 ml [Nss] 100 ml IV NOW
04/29/24 11:25
CBC/With Diff [Complete Blood Count/With Diff] Urgent
CMP [Comprehensive Metabolic Panel] Urgent
04/29/24 11:53
Acetaminophen [Tylenol] 1,000 mg PO NOW STA
04/29/24 13:41
0.9% Sodium Chloride 1000 ml [Nss] 1,000 ml IV BOLUS
Abnormal Lab Results
04/29/24
11:25
RBC 4.42 L 10^6/uL
(4.70-6.10)
MCH 31.7 H pg
(27.0-31.0)
Absolute Neuts (auto) 7.8 H 10^3/uL
(1.4-6.5)
Absolute Monos (auto) 1.1 H 10^3/uL
(0.1-0.6)
Lymphocytes % 11.8 L %
(20.5-51.1)
Monocytes % 10.7 H %
(1.7-9.3)
Glucose 105 H mg/dl
(70-99)
Alkaline Phosphatase 157 H U/L
(38-126)
04/29/24 11:25
04/29/24 11:25
Vital Signs
Initial and Last Documented VS:
Initial Vital Signs
Temp Pulse Resp BP Pulse Ox
97.8 F 120 22 181/119 99
04/29/24 09:46 04/29/24 09:46 04/29/24 09:46 04/29/24 09:46 04/29/24 09:46
Last Documented Vital Signs
Temp Pulse Resp BP Pulse Ox
97.8 F 113 21 118/76 95
04/29/24 09:46 04/29/24 14:15 04/29/24 14:15 04/29/24 14:00 04/29/24 14:15
MDM/Problems Addressed
MDM/Problems Addressed:
48-year-old male presenting to the emergency department today with concerns of worsening sore throat over the past few days. Increasingly difficult to swallow. Here he was positive for strep does have significant swollen exudative tonsils
bilaterally uvula midline grossly patent airway. Initial heart rate in the 130s but sinus. Patient claims that he does run somewhat tachycardic at baseline and has had multiple workups with cardiology for this. Here symptoms significant improved
after receiving steroids pain medication. Heart rate improving to 102 stable for discharge at this time able to tolerate by mouth.
*Critical Care Note
Total Time (30-74mins, 75-104mins- exclusive of procedures): Not Applicable
ED Attending Note
-
Portions of this chart may have been created with voice recognition software.� Occasional wrong word or��sound alike� substitutions may have occurred due to the inherent limitations of voice recognition software.
Discharge Plan
Departure
Patient Disposition: Home (Routine Discharge)
Date of Disposition: 04/29/24
Time of Disposition: 14:42
Patient with high blood pressure during this ER visit?: No
Condition: Good
Covid-19: Not Applicable
Discharge Problem:
Strep throat
Instructions: Strep Throat (DC)
Prescriptions:
New
prednisone 50 mg tablet
50 mg PO DAILY 4 Days Qty: 4 0RF
penicillin V potassium 500 mg tablet
500 mg PO TID 10 Days Qty: 30 0RF
No Action
atorvastatin 20 mg Tablet
20 mg PO DAILY
loratadine [Claritin] 10 mg Tablet
10 mg PO DAILY
infliximab [Remicade] 100 mg Recon Soln
0 mg IV Q8W
ibuprofen 200 mg Tablet
400 mg PO DAILYPRN PRN (Reason: mild pain)
acetaminophen 325 mg tablet
650 mg PO DAILYPRN PRN (Reason: mild pain)
valacyclovir [Valtrex] 1 gram Tablet
1,000 mg PO DAILYPRN PRN (Reason: cold sores)
cyanocobalamin (vitamin B-12) [Cyanacobalamin] 1,000 mcg/mL Solution
1,000 mcg SC QMONTH
lisinopril 5 mg Tablet
5 mg PO DAILY
Semaglutide Vial
10 ml SC FR
Referrals:
Rabia Tapia CRNP [Family Provider] -
Activity Restrictions/Additional Instructions:
You came to the emergency department today with concerns of strep throat. You were given antibiotics as well as steroids. Please take prednisone 50 mg once daily for the next 4 days as well as penicillin VK 3 times daily for the next 10 days.
Please also take Motrin Tylenol for discomfort. Please drink plenty of fluids. Return to the emergency department any worsening, new or concerning symptoms.
Interventions
Interventions:
*Risk Screen - Suicide Last Done: 04/29/24 11:10
*General Assessment Last Done: 04/29/24 11:10
*Neglect/Abuse Screening Last Done: 04/29/24 11:10
ED- Fall Risk Assessment Last Done: 04/29/24 11:10
*ED COVID-19 Vaccine History Last Done: 04/29/24 09:46
ED-EENT Assessment Last Done: 04/29/24 11:10
ED- Pulmonary Assessment Last Done: 04/29/24 11:10
Discharge Date and Time
Print Language: UKRAINIAN
[2024-04-29] MEDS: NSS 1000 IV ×2 (11:34→13:47)
[2024-04-29] MEDS: DECADRON 10 MG IV (11:35)
[2024-04-29] MEDS: TORADOL 30 MG IV (11:35)
[2024-04-29 11:44] LABS: % Basophils 0.2 % (0-2); % Eosinophils 2.9 % (0-6); % Immature Granulocytes 0.2 % (0-0.5); % Lymphocytes 11.8 % (20.5-51.1); % Monocytes 10.7 % (1.7-9.3); % Neutrophils 74.2 % (42.2-75.2); Absolute Eosinophils 0.3 10^3/uL (0-0.7); Absolute Lymphocytes 1.2 10^3/uL (1.2-3.4); Absolute Monocytes 1.1 10^3/uL (0.1-0.6); Absolute Neutrophils 7.8 10^3/uL (1.4-6.5); Hematocrit 41.4 % (39.0-52.0); Mean Corp Hgb Conc. 33.8 g/dL (33.0-37.0); Mean Corpuscular Hgb 31.7 pg (27.0-31.0); Mean Corpuscular Volume 93.7 fL (80.0-94.0); Mean Platelet Volume 9.2 fL (7.4-10.4); Nucleated Red Blood Cells % 0 % (-); Platelet Count 180 10^3/uL (130-400); Red Blood Cell Count 4.42 10^6/uL (4.70-6.10); Red Cell Dist. Width 12.2 % (11.5-14.5); White Blood Cell Count 10.5 10^3/uL (4.8-10.8)
[2024-04-29] MEDS: UNASYN IV (11:45)
[2024-04-29 11:57] LABS: ALT (SGPT) 35 U/L (0-50); AST (SGOT) 33 U/L (17-59); Albumin 4.3 g/dl (3.5-5.0); Alkaline Phosphatase 157 U/L (38-126); Blood Urea Nitrogen 19 mg/dl (9-20); Calcium 9.2 mg/dl (8.4-10.2); Carbon Dioxide 23 mmol/L (22-30); Chloride 101 mmol/L (98-107); Estimated Creatinine Clearance 113 ml/min; Glucose 105 mg/dl (70-99); Potassium 4.3 mmol/L (3.5-5.1); Sodium 137 mmol/L (135-145); Total Bilirubin 0.9 mg/dl (0.2-1.3); Total Protein 7.5 g/dl (6.3-8.2); eGFR > 60.00
[2024-04-29 12:00] VITALS: BP 111/57
[2024-04-29 13:00] VITALS: BP 109/62
[2024-04-29] MEDS: TYLENOL 1000 MG PO (13:13)
[2024-04-29 14:00] VITALS: BP 118/76
== END 2024-04-29 15:12 | disposition home or self-care (01) ==
LOC: EMR 09:29
PROVIDERS: Physician Assistant; EMERGENCY PHYSICIAN Emergency Medicine; FAMILY PHYSICIAN Nurse Practitioner
DX: J02.0 Streptococcal pharyngitis (principal); I10 Essential (primary) hypertension; E78.00 Pure hypercholesterolemia, unspecified; K50.90 Crohn's disease, unspecified, without complications; G47.30 Sleep apnea, unspecified
CPT/HCPCS: 99283; 96365; 96375; 96361; 80053; 85025; 87070; 87147; 87502; 87811; 87880; 93005